=== PATIENT | female | born 1965 ===

== ENCOUNTER → 2019-05-09 | Outpatient (CLI) | payer BC ==
--- NOTE | 2019-05-12 16:33 | RADIOLOGY IMAGING REPORT ---
FACILITY: [facility] PATIENT NAME: MAXIMILIANO MATHEW : [id number] MR: [id number] V: [id number] EXAM DATE: [id number] ORDERING PHYSICIAN: KO ACBRERA TECHNOLOGIST: Leny Montanez PROCEDURE: BILATERAL DIGITAL SCREENING MAMMOGRAM WITH CAD ASSISTED INTERPRETATION & 3D TOMOSYNTHESIS REASON FOR STUDY: Screening FAMILY HISTORY OF BREAST CANCER: BREAST PROCEDURES/TREATMENTS: COMPARISON: None. Baseline study. VIEWS OBTAINED: Bilateral 2D & 3D full field CC & MLO projections BREAST DENSITY: Mostly fatty replaced. MAMMOGRAM FINDINGS: There is focal asymmetry in the retroareolar aspect of the Left breast. No concerning mammographic findings otherwise on either side. IMPRESSION: BIRADS 0: Incomplete, need additional imaging evaluation. Recommend Left breast diagnostic mammogram. Spot compression CC & MLO views as well as a true MLO view. Ultrasound Left breast if indicated by additional views. DIAGNOSTIC CATEGORY 0--INCOMPLETE: NEED ADDITIONAL IMAGING EVALUATION. RECOMMENDATIONS: ADDITIONAL MAMMOGRAPHIC VIEWS REQUIRED: LEFT BREAST. ULTRASOUND: LEFT BREAST. Dictated by: Rodolfo Santos on 05/12/2019 at 9:00 Transcribed by: LOUIE on 05/12/2019 at 14:09 Approved by: Rodolfo Santos on 05/12/2019 at 16:31 [facility]
== END ==
LOC: MAMO 03:59
PROVIDERS: ATTEND Family Medicine
DX: R92.2 Inconclusive mammogram (principal)
CPT/HCPCS: 77063; 77067

== ENCOUNTER → 2019-05-22 | Outpatient (CLI) | payer BC | LOC: LAB 14:56 | PROVIDERS: ATTEND Nurse Practitioner | DX: L82.1 Other seborrheic keratosis (principal) | CPT/HCPCS: 88305 ==

== ENCOUNTER → 2019-05-23 | Outpatient (CLI) | payer BC ==
--- NOTE | 2019-05-23 14:54 | RADIOLOGY IMAGING REPORT ---
FACILITY: [facility] - [place] PATIENT NAME: MAXIMILIANO MATHEW : [id number] MR: [id number] V: [id number] EXAM DATE: [id number] ORDERING PHYSICIAN: KO CABRERA TECHNOLOGIST: Vinny Baca RDMS, [facility] PROCEDURE:LEFT DIGITAL MAMMOGRAM DIAGNOSTIC WITH CAD ASSISTED INTERPRETATION & 3D TOMOSYNTHESIS REASON FOR STUDY: Further evaluation FAMILY HISTORY OF BREAST CANCER: BREAST PROCEDURES/TREATMENTS: COMPARISON STUDIES: Prior mammogram dated 05/09/19 MAMMOGRAM VIEWS OBTAINED: 2D & 3D full field Left ML projection & 2D & 3D spot compression views in the Left CC & MLO projections. BREAST DENSITY: MAMMOGRAM FINDINGS: The focal asymmetry in the Left retroareolar breast appears partially compressible when compared to the prior study. ULTRASOUND LEFT BREAST AREA SCANNED: The retroareolar portion of the Left breast & the 4 o'clock position of the Left breast. ULTRASOUND FINDINGS: In the 4 o'clock position & in the Left retroareolar breast mildly prominent ducts were demonstrated measuring up to 2mm in diameter. There was no demonstration of an internal mass or internal debris. DIAGNOSTIC CATEGORY 2--BENIGN FINDING. RECOMMENDATIONS: ROUTINE MAMMOGRAM AND CLINICAL EVALUATION. IMPRESSION: BIRADS 2: Benign finding. There are mildly prominent ducts in the retroareolar & 4 o'clock positions of the Left breast. Dictated by: Coral Helm M.D. on 05/23/2019 at 13:29 Approved by: Coral Helm M.D. on 05/23/2019 at 14:51 [facility]
--- NOTE | 2019-05-23 14:54 | RADIOLOGY IMAGING REPORT ---
FACILITY: [facility] - [place] PATIENT NAME: MAXIMILIANO MATHEW : [id number] MR: [id number] V: [id number] EXAM DATE: ORDERING PHYSICIAN: KO CABRERA TECHNOLOGIST: Leny Montanez PROCEDURE:LEFT DIGITAL MAMMOGRAM DIAGNOSTIC WITH CAD ASSISTED INTERPRETATION & 3D TOMOSYNTHESIS REASON FOR STUDY: Further evaluation FAMILY HISTORY OF BREAST CANCER: BREAST PROCEDURES/TREATMENTS: COMPARISON STUDIES: Prior mammogram dated 05/09/19 MAMMOGRAM VIEWS OBTAINED: 2D & 3D full field Left ML projection & 2D & 3D spot compression views in the Left CC & MLO projections. BREAST DENSITY: MAMMOGRAM FINDINGS: The focal asymmetry in the Left retroareolar breast appears partially compressible when compared to the prior study. ULTRASOUND LEFT BREAST AREA SCANNED: The retroareolar portion of the Left breast & the 4 o'clock position of the Left breast. ULTRASOUND FINDINGS: In the 4 o'clock position & in the Left retroareolar breast mildly prominent ducts were demonstrated measuring up to 2mm in diameter. There was no demonstration of an internal mass or internal debris. DIAGNOSTIC CATEGORY 2--BENIGN FINDING. RECOMMENDATIONS: ROUTINE MAMMOGRAM AND CLINICAL EVALUATION. IMPRESSION: BIRADS 2: Benign finding. There are mildly prominent ducts in the retroareolar & 4 o'clock positions of the Left breast. Dictated by: Coral Helm M.D. on 05/23/2019 at 13:29 Transcribed by: LOUIE on 05/23/2019 at 14:13 Approved by: Coral Helm M.D. on 05/23/2019 at 14:51 [facility]
== END ==
LOC: MAMO 00:46
PROVIDERS: ATTEND Family Medicine
DX: R92.8 Other abnormal and inconclusive findings on diagnostic imaging of breast (principal)
CPT/HCPCS: 77061; 77065